=== PATIENT | female | born 1965 | race Caucasian/White ===

== ENCOUNTER 2023-10-14 20:47 | Emergency (ER) | payer OTHER, SELFPAY ==
[2023-10-14 21:13] VITALS: BP 150/67; PULSE 91; RESP 26; O2SAT 100; BMI 21.3
--- NOTE | 2023-10-14 22:48 | PC.NURSE ---
patient was immediately assessed by the provider upon arrival. She ordered 2mg ativan. The patient declined the ativan because she didn't think she needed any medication. The patient decided that she didn't want to wait around to be seen by the doctor again.
== END 2023-10-14 22:45 | disposition left against medical advice (07) ==
PROVIDERS: Emergency Provider Emergency Medicine
CPT/HCPCS: 99281